=== PATIENT | female | born 1955 | race Caucasian/White ===

== ENCOUNTER 2017-04-05 07:13 | Emergency (ER) | payer BC ==
[2017-04-05 07:25] VITALS: BP 159/57
--- NOTE | 2017-04-05 07:45 | UC ---
Respiratory Complaint HPI - HPI Summary HPI Summary: "Sore throat, congestion, drainage from bilateral ears, & left eye redness & drainage since Thursday. " Denies ear pain, just feel plugged. + teeth hurt, + sinus pressure. Has had sinusitis but doesnt feel like it is at this point yet. + cough, no wheezing. no fevers. No eye trauma, no contacts. note - amox has caused yeast infection in past, no hives, itching or swelling. - History of Current Complaint Chief Complaint: UCRespiratory Stated Complaint: COUGH,CONGESTION Time Seen by Provider: 04/05/17 07:36 - Allergies/Home Medications Allergies/Adverse Reactions: Allergies Allergy/AdvReac Type Severity Reaction Status Date / Time Fish-derived Products Allergy Vomiting Verified 04/05/17 07:18 Meperidine [From Demerol HCl] Allergy Rash Verified 04/05/17 07:18 Home Medications: Home Medications Exenatide [Byetta] 10 mcg SC BID 04/05/17 [History Confirmed 04/05/17] Sitagliptin-Metformin HCl [Janumet 50-1000 mg] 1 tab PO BID 04/05/17 [History Confirmed 04/05/17] glipiZIDE TAB* [Glucotrol TAB*] 5 mg PO DAILY 04/05/17 [History Confirmed ] PMH/Surg Hx/FS Hx/Imm Hx Previously Healthy: Yes Endocrine History: Diabetes Cardiovascular History: Hypertension - Surgical History Surgical History: Yes Surgery Procedure, Year, and Place: CARPAL TUNNEL SURGERY RIGHT HAND, CHOLECYSTECTOMY, BUNION SURGERY - Family History Known Family History: Positive: Hypertension - Social History Alcohol Use: None Substance Use Type: None Smoking Status (MU): Never Smoked Tobacco Review of Systems Constitutional: Negative Skin: Negative Eyes: Drainage - crusted shut this AM. no pain, no trauma., Eye Redness ENT: Dental Pain, Ear Ache - pressure/dc, Sinus Congestion, Sinus Pain/ Tenderness Respiratory: Negative Cardiovascular: Negative Gastrointestinal: Negative Genitourinary: Negative Motor: Negative Neurovascular: Negative Musculoskeletal: Negative Neurological: Negative Psychological: Negative All Other Systems Reviewed And Are Negative: Yes Physical Exam Triage Information Reviewed: Yes Appearance: Well-Appearing, No Pain Distress, Well-Nourished - very pleasant Vital Signs: Initial Vital Signs Temp 98.0 F 04/05/17 07:21 Pulse 100 04/05/17 07:21 Resp 16 04/05/17 07:21 BP 159/57 04/05/17 07:21 Pulse Ox 98 04/05/17 07:21 Vital Signs Reviewed: Yes Eyes: Positive: Discharge - left goopy d/c with conj injection. right clear. ENT: Positive: Pharyngeal erythema - mild with + PND, Nasal congestion, TM bulging - b/l with mild blood tinge. TMs are distorted b/l with possbile perf., TM red, Other: - + sinus tenderness maxillary. Negative: Tonsillar exudate Neck exam: Normal Neck: Positive: Supple, Nontender, No Lymphadenopathy Respiratory Exam: Normal Respiratory: Positive: Lungs clear, Normal breath sounds, No respiratory distress, No accessory muscle use. Negative: Crackles, Rhonchi, Stridor, Wheezing Cardiovascular Exam: Normal Cardiovascular: Positive: RRR, No Murmur, Pulses Normal Abdomen Description: Positive: Nontender, Soft Bowel Sounds: Positive: Present Musculoskeletal Exam: Normal Neurological Exam: Normal Psychological Exam: Normal Skin Exam: Normal UC Diagnostic Evaluation - Laboratory O2 Sat by Pulse Oximetry: 98 Respiratory Course/Dx - Course Course Of Treatment: Left conjunctivitis. cool compresses, no eye make up. Presumed b/l TM perf b/c blood and d/c from canal, but TMs distorted b/l. Early sinusitis. -amox and gentamycin eye gtts. call PCP with yeast infection sx if they develop. She is very agreeable with this plan. - Differential Dx/Diagnosis Differential Diagnosis/HQI/PQRI: Bronchitis, Lower Resp Infection, Sinusitis Provider Diagnoses: Left conjunctivitis, B/L OM with perforated TMs presumed Discharge - Discharge Plan Condition: Stable Disposition: HOME Prescriptions: Amoxicillin (*) [Amoxicillin 875 MG (*)] 875 mg PO BID #20 tab Gentamicin 0.3% OPHTH.SOLN* 1 drop LEFT EYE Q4H #1 btl Patient Education Materials: Otitis Media (ED), Ruptured Eardrum (ED), Conjunctivitis (ED) Referrals: Neeta Arciniega MD [Primary Care Provider] - 2 Days Additional Instructions: -take a probiotic daily while on an antibiotic (align, colon health or florastor are some common brands) -Keep a close eye on your blood sugars as any infection can cause unusually high blood sugar readings.
== END 2017-04-05 07:56 | disposition home or self-care (01) ==
LOC: UCCORT 07:13
DX: H10.9 Unspecified conjunctivitis (principal); I10 Essential (primary) hypertension; H66.93 Otitis media, unspecified, bilateral
CPT/HCPCS: 99212; G0463

== ENCOUNTER 2017-07-21 07:52 | Inpatient (IN) | payer BC ==
[~2017-07-21 07:52] MED LIST: Buffered Lidocaine 0.9% SYRIN* 5 ML/SYR SYRINGE INTRADERM ONE; DiMENhydriNATE IV* 50 MG/ML VIAL IV PUSH PRN; Famotidine IV* 10 MG/ML 2 ML (20 mg) IV ONE; Morphine INJ* 2 MG/ML 1 ML CARPUJECT IV PRN; Ondansetron INJ* 2 MG/ML VIAL IV PRN; PROCHLORPERAZINE INJ 5 MG/ML 2 ML VIAL IV PRN; Scopolamine 1.5 mg* PATCH TRANSDERM ONE
[2017-07-21] MEDS ORDERED: ceFAZolin 2 GM PREMIX (*) 2 GM/50 ML BAG IVPB ONE (08:03)
[2017-07-21] MEDS ORDERED: Heparin VIAL(*) 5000 UNITS/ML VIAL (FIVE THOUSAND) ONE (08:03)
[2017-07-21] MEDS ORDERED: Clindamycin 900 MG IVPREMIX(* 900 MG/50 ML SDV IV ONE (08:03)
[2017-07-21] MEDS ORDERED: Famotidine IV* 10 MG/ML 2 ML (20 mg) ONE (08:03)
[2017-07-21] MEDS ORDERED: CeFAZolin 1 GM PREMIX(*) 1 GM BAG (REFRIGERATE) IVPB ONE (08:04)
[2017-07-21] MEDS ORDERED: Buffered Lidocaine 0.9% SYRIN* 5 ML/SYR SYRINGE ONE (08:04)
[2017-07-21] MEDS ORDERED: fentaNYL* 50 MCG/ML 2 ML VIAL (100 MCG VIAL) ONE ×2 (08:32→12:18)
[2017-07-21] MEDS ORDERED: Midazolam* 1 MG/ML 5 ML VIAL (5 MG) ONE (08:33)
[2017-07-21] MEDS ORDERED: KETAMINE HCL* 50 MG/ML 10 ML VIAL ONE (08:33)
[2017-07-21] MEDS ORDERED: Atracurium* 10 MG/ML 10 ML VIAL ONE (08:33)
[2017-07-21] MEDS ORDERED: Scopolamine 1.5 mg* PATCH ONE (08:34)
[2017-07-21] MEDS ORDERED: Insulin REGULAR(*) 1 UNITS UNIT ONE ×2 (08:47→11:59)
[2017-07-21] MEDS ORDERED: Methylene Blue 0.5 %* 50 MG/10 ML AMP IV ONE (09:27)
[2017-07-21] MEDS ORDERED: Bupivacaine 0.25% SDV* 30 ML ONE (09:27)
[2017-07-21] MEDS ORDERED: PROCHLORPERAZINE INJ 5 MG/ML 2 ML VIAL ONE (10:07)
[2017-07-21] MEDS ORDERED: Ondansetron INJ* 2 MG/ML VIAL ONE (10:07)
[2017-07-21] MEDS ORDERED: Propofol* 10 MG/ML 20 ML BTL IV PUSH ONE (10:07)
[2017-07-21] MEDS ORDERED: Glycopyrrolate IV* 0.2 MG/ML 1 ML VIAL ONE (10:07)
[2017-07-21] MEDS ORDERED: Phenylephrine INJ* 10 MG/ML 1 ML VIAL (10 MG) ONE (10:07)
[2017-07-21] MEDS ORDERED: Neostigmine Methylsulfate* 2 MG/2 ML SYRINGE ONE (10:07)
[2017-07-21] MEDS ORDERED: Lidocaine 2% PF* 10 ML AMP ONE (10:07)
[2017-07-21] MEDS ORDERED: Morphine INJ* 10 MG/ML 1 ML CARPUJECT ONE ×2 (10:23→12:18)
[2017-07-21] MEDS ORDERED: EPHEDrine (Pressors)* 50 MG/ML VIAL ONE (10:29)
[2017-07-21] MEDS ORDERED: Labetalol IV* 5 MG/ML 20 ML VIAL ONE (11:40)
[2017-07-21] MEDS ORDERED: Acetaminophen ADULT LIQ* 650 MG/20.3 ML UDC PO PRN (11:48)
[2017-07-21] MEDS ORDERED: Dextrose 50% Syringe 50 ML* 25 GM/50 ML SYRINGE IV PUSH PRN (11:51)
--- NOTE | 2017-07-21 12:08 | PN ---
Progress Note - Progress Note Date of Service: 07/21/17 Note: Brief Operative Note: Pre-op: Morbid obesity Post-op: Same Procedure: Laparoscopic Yu-en-Y gastric bypass Surgeon: Dr. Roberts Television News Video Editor: Chauncey Yee Mellissa: ECTOR EBL: Minimal Catheter: Naik to gravity Drains: None Fluids: LR 1500 cc Specimen: None Findings: See dictated op note
[2017-07-21] MEDS: fentaNYL* 50 MCG/ML 2 ML VIAL (100 MCG VIAL) IV PRN ×2 (12:19→12:46)
[2017-07-21] MEDS ORDERED: HYDROmorphone INJ* 2 MG/ML CARPUJECT SYRINGE ONE (13:51)
[2017-07-21] MEDS: Insulin LISPRO* 1 UNITS UNIT SUBCUT SCH ×2 (14:22→18:44)
[2017-07-21] MEDS: Pantoprazole IV* 40 MG IV SCH (15:02)
[2017-07-21] MEDS: Ketorolac INJ* 30 MG/ML 1 ML VIAL IV PUSH PRN (16:08)
[2017-07-21] MEDS: HYDROmorphone INJ* 2 MG/ML CARPUJECT SYRINGE IV PRN ×2 (18:47→22:35)
[2017-07-22] MEDS: Insulin LISPRO* 1 UNITS UNIT SUBCUT SCH ×4 (00:19→18:30)
[2017-07-22] MEDS: Ketorolac INJ* 30 MG/ML 1 ML VIAL IV PUSH PRN ×2 (00:23→06:25)
--- NOTE | 2017-07-22 06:45 | OP ---
CC: Neeta Arciniega MD; [facility]* DATE OF OPERATION: 07/21/17 - Inpatient, room SSU 352-01 DATE OF : 53 SURGEON: Jeoavny Roberts MD. SITE INSPECTOR: DILSHAD Ingram. ANESTHESIOLOGIST: Dr. Yuan. ANESTHESIA: General endotracheal. PRE-OP DIAGNOSIS: Class 2 obesity with diabetes. POST-OP DIAGNOSIS: Class 2 obesity with diabetes. OPERATIVE PROCEDURE: Laparoscopic Yu-en-Y gastric bypass. ESTIMATED BLOOD LOSS: Less than 20 mL. IV FLUIDS: 1.5 L Crystalloid. SPECIMENS: None. DRAINS: None. COMPLICATIONS: None. COUNTS: The instrument, needle, and sponge counts were correct. DESCRIPTION OF PROCEDURE: The patient was brought to the operating room and placed on the table supine. Sequential compression devices were placed in both lower extremities. General anesthesia was administered. Naik catheter was placed. She was positioned and padded appropriately. She was prepped and draped in usual sterile fashion and received appropriate intravenous antibiotics. Time-out was performed. Local anesthetic was infiltrated into the skin and soft tissue prior to making incision. Pneumoperitoneum was achieved using a Veress needle through a transumbilical placement. Subsequently a 12 mm optical trocar was placed in the left upper quadrant and additional 12 mm optical trocars are placed in the supraumbilical midline and right upper quadrant. 5 mm trocars were placed in the right upper quadrant medially and left upper quadrant laterally. A Michelle liver retractor was placed percutaneously in the subxiphoid position and used to elevate the left lobe of the liver. There were some adhesions of omentum in the left abdomen that were taken down with LigaSure. The gastric anatomy appeared normal. The gastric pouch was fashioned first by dissecting the cardia of the stomach away from the left jenny of the diaphragm. Then the perigastric dissection was undertaken on the lesser curvature, down to the lesser sac at approximately the second crossing vein. With several firings of the Endo DYLAN stapler with maciel cartridges, the gastric pouch was created approximately a 15 to 30 mL volume gastric pouch. The omentum and transverse colon were then retracted superiorly and the ligament of Treitz was identified. Jejunum was measured out 40 cm and the limb of jejunum was then secured to the left lateral aspect of the gastric pouch with interrupted 2-0 silks. Next, the gastrojejunal anastomosis was created using Endo DYLAN stapler with a 30 mm maciel cartridge. The common enterotomy was run closed over a 36-Jamaican gastric lavage tube with 3-0 PDS suture. Lastly, the [place] loop of jejunum was divided to the left of the anastomosis with the Endo DYLAN stapler with maciel cartridge. The anastomosis was then tested with methylene blue dye and instilled through the oral gastric tube and no leak was identified. The Yu limb was then measured out for a 75 cm and at this point, a functional end-to-side jejunojejunostomy was created using Endo DYLAN stapler with 60 mm maciel cartridges. The common enterotomy was run closed with 3-0 PDS. Anti-obstruction sutures were placed proximally and distally at the anastomosis and the mesenteric defect was run closed with 3-0 silk. The inspection revealed anastomosis to be intact and hemostasis was excellent. The orientation of the bowel was confirmed. The liver retractor and the ports were removed under direct visualization. The carbon dioxide was released. The skin incisions were closed with jaida and dressings were applied. The patient tolerated the procedure well, was extubated and transferred to recovery room in stable condition. [id number]/[facility] #: [id number] [facility] C[facility]ERStefani
[2017-07-22] MEDS ORDERED: ESCITALOPRAM 20 MG PO SCH (09:00)
[2017-07-22] MEDS: HYDROmorphone INJ* 2 MG/ML CARPUJECT SYRINGE IV PRN (10:00)
--- NOTE | 2017-07-22 10:46 | PN ---
Progress Note - Progress Note Date of Service: 07/22/17 SOAP: Subjective: Doing well. No c/o N/V. Pain controlled. Objective: Vital Signs Temp 98.8 F 07/22/17 07:48 Pulse 71 07/22/17 07:48 Resp 16 07/22/17 10:00 BP 137/57 07/22/17 07:48 Pulse Ox 93 07/22/17 07:50 Gen: NAD Abd: incisions c/d/i; minimally tender; soft. Intake & Output 07/21/17 07/22/17 07/22/17 18:59 06:59 18:59 Intake Total 1999 1937 Output Total 250 750 200 Balance 1750 1188 -200 Weight 172 lb 9.6 oz Intake: IV Fluids 1999 1937 CLINDAMYCIN 900MG 50 LR 1899 1937 NS 50ML, Cefazolin 2G 50 Oral 0 Output: Naik 250 750 200 Assessment: POD#1 s/p LRYGB. Doing well. Plan: Clears. PO meds. Ambulate/pulm toilet. Home likely tomorrow.
[2017-07-22] MEDS ORDERED: D5W 1/2 NS KCl 20 Meq 1000 ML* 1,000 ML IV SCH (11:50)
[2017-07-22] MEDS: Pantoprazole IV* 40 MG IV SCH (12:51)
[2017-07-22] MEDS: Escitalopram (NF) 10 MG TAB PO SCH (12:51)
[2017-07-22] MEDS: HYDROcodone/ACET. 7.5/325 LIQ* 15 ML UDC PO PRN ×2 (15:33→21:35)
[2017-07-23] MEDS: Insulin LISPRO* 1 UNITS UNIT SUBCUT SCH ×3 (00:09→11:34)
[2017-07-23] MEDS: HYDROcodone/ACET. 7.5/325 LIQ* 15 ML UDC PO PRN ×2 (04:02→11:15)
[2017-07-23] MEDS: Escitalopram (NF) 10 MG TAB PO SCH (09:04)
[2017-07-23] MEDS: Pantoprazole IV* 40 MG IV SCH (11:26)
[2017-07-23 11:41] VITALS: BP 148/61
--- NOTE | 2017-07-24 02:09 | DS ---
CC: Dr. Neeta Arciniega in [place]* DISCHARGE SUMMARY: DATE OF ADMISSION: 07/21/17 DATE OF DISCHARGE: 07/23/17 ATTENDING SURGEON: Dr. Jeovany Roberts* (dictated by DILSHAD Felton). HOSPITAL COURSE: Please refer to admission history and physical for admission details. The patient was taken to the operating room on 07/21/17 at which time she underwent laparoscopic Yu-en-Y gastric bypass with Dr. Roberts. Postoperatively, she has done well with no problems reported. She has had gradual improvement in pain. She is tolerating bariatric clear liquids well as of the morning of discharge. PHYSICAL EXAMINATION: Temperature 98.6, blood pressure 148/61, pulse 64, respirations 20, room air saturation 99%. General: She appears well and in no acute distress. Skin: Warm and dry. Heart: Regular rate and rhythm. Lungs: Clear to auscultation. Abdomen: Bowel sounds present. Laparoscopic incision sites clean with intact jaida. No evidence of wound infection. Abdomen is soft with limited incisional tenderness as would be expected. IMPRESSION: Status post laparoscopic Yu-en-Y gastric bypass, doing well. PLAN: Home today. Instructions were reviewed regarding diet, wound care, and activity. She already has an existing followup appointment with the [facility] for metabolic and bariatric surgery. In terms of discharge medications, she will continue to hold all of her diabetes medications (fingerstick blood sugars have ranged between 128 and 150). She will continue to hold her lisinopril, but may take her usual atorvastatin and escitalopram. She also will continue with supplements as directed. DILSHAD FELTON [id number]/[facility] #: [id number] MTDD
[2017-07-24] MEDS ORDERED: Scopolomine PATCH Remove* 1 NOTE MISC PATCH OFF ONE (06:00)
== END 2017-07-23 13:10 | disposition home or self-care (01) | DRG 403 ==
LOC: AA 07:52 → SSU 13:36
PROVIDERS: ADMIT Surgery; ATTEND Surgery
PROC: 0D164ZA Bypass Stomach to Jejunum, Percutaneous Endoscopic Approach (ICD-10-PCS; principal; 2017-07-21 09:30)
DX: E66.01 Morbid (severe) obesity due to excess calories (principal); E11.9 Type 2 diabetes mellitus without complications; I10 Essential (primary) hypertension; K21.9 Gastro-esophageal reflux disease without esophagitis; F32.9 Major depressive disorder, single episode, unspecified; F41.9 Anxiety disorder, unspecified; H40.9 Unspecified glaucoma; Z90.49 Acquired absence of other specified parts of digestive tract; Z82.49 Family history of ischemic heart disease and other diseases of the circulatory system; Z82.3 Family history of stroke; Z85.828 Personal history of other malignant neoplasm of skin; Z68.31 Body mass index [BMI] 31.0-31.9, adult; Z88.8 Allergy status to other drugs, medicaments and biological substances; Z91.013 Allergy to seafood; Z87.891 Personal history of nicotine dependence
CPT/HCPCS: 43644; A9270-GY; C1776; J0690; J0780; J1170; J1644; J1885; J2001; J2250; J2270; J2405; J2704; J3010

== ENCOUNTER 2017-09-09 10:31 | Day surgery (SDC) | payer BC ==
[~2017-09-09 10:31] MED LIST changes: -DiMENhydriNATE IV* 50 MG/ML VIAL IV PUSH PRN; -Famotidine IV* 10 MG/ML 2 ML (20 mg) IV ONE; -Morphine INJ* 2 MG/ML 1 ML CARPUJECT IV PRN; -Ondansetron INJ* 2 MG/ML VIAL IV PRN; -PROCHLORPERAZINE INJ 5 MG/ML 2 ML VIAL IV PRN; -Scopolamine 1.5 mg* PATCH TRANSDERM ONE
[2017-09-09] MEDS ORDERED: Buffered Lidocaine 0.9% SYRIN* 5 ML/SYR SYRINGE ONE (10:40)
[2017-09-09] MEDS ORDERED: Clindamycin 900 MG IVPREMIX(* 900 MG/50 ML SDV IV ONE (10:40)
[2017-09-09] MEDS ORDERED: ceFAZolin 2 GM PREMIX (*) 2 GM/50 ML BAG IVPB ONE (10:40)
[2017-09-09] MEDS ORDERED: Heparin VIAL(*) 5000 UNITS/ML VIAL (FIVE THOUSAND) ONE (10:40)
[2017-09-09] MEDS ORDERED: ceFAZolin 1 GM in Dextrose (*) 1 GM/50 ML BAG IVPB ONE (10:40)
[2017-09-09] MEDS ORDERED: Bupivacaine 0.25% SDV* 30 ML ONE (13:54)
[2017-09-09] MEDS ORDERED: Lidocaine 2% PF * 5 ML VIAL ONE (14:07)
[2017-09-09] MEDS ORDERED: fentaNYL* 50 MCG/ML 2 ML VIAL (100 MCG VIAL) ONE (14:07)
[2017-09-09] MEDS ORDERED: Atracurium* 10 MG/ML 10 ML VIAL ONE (14:08)
[2017-09-09] MEDS ORDERED: Propofol* 10 MG/ML 20 ML BTL IV PUSH ONE (14:08)
[2017-09-09] MEDS ORDERED: EPHEDrine (Pressors)* 50 MG/ML VIAL ONE (14:43)
[2017-09-09] MEDS ORDERED: Edrophonium Chloride* 10 MG/ML 15 ML VIAL ONE (15:01)
[2017-09-09] MEDS ORDERED: Atropine 1MG/ML INJ* 1 ML VIAL ONE (15:01)
--- NOTE | 2017-09-09 15:15 | PN ---
Progress Note - Progress Note Date of Service: 09/09/17 Note: Brief Operative Note: Preop Dx: abdominal pain Postop Dx: same; adhesions Procedure: diagnostic laparoscopy; lysis of adhesions Anesthesia: GET Surgeon: Alejandra Asst: DILSHAD Bey Fluids: 850 ml EBL: 10 ml Specimen: none Drains: none Findings: dictated
[2017-09-09] MEDS ORDERED: HYDROcodone/ACETAMIN 5-325 MG* 1 TAB PO PRN (15:24)
[2017-09-09] MEDS ORDERED: Acetaminophen TAB* 325 MG PO PRN (15:24)
[2017-09-09] MEDS ORDERED: Ketorolac INJ* 30 MG/ML 1 ML VIAL IV PRN (15:26)
[2017-09-09] MEDS ORDERED: fentaNYL* 50 MCG/ML 2 ML VIAL (100 MCG VIAL) IV PRN (15:26)
[2017-09-09] MEDS ORDERED: oxyCODONE/Acetamin 5/325 MG* TAB PO PRN (15:26)
[2017-09-09] MEDS ORDERED: DiMENhydriNATE IV* 50 MG/ML VIAL IV PUSH PRN (15:26)
[2017-09-09 16:23] VITALS: BP 132/68
--- NOTE | 2017-09-10 05:19 | OP ---
CC: Neeta Arciniega MD, [facility] * DATE OF OPERATION: 09/09/17 - [facility] DATE OF : 53 SURGEON: Jeovany Roberts MD STATION INSTALLATION SUPERVISOR: DILSHAD Felton ANESTHESIOLOGIST: Satya Goss MD ANESTHESIA: General endotracheal. PRE-OP DIAGNOSIS: Left lower quadrant abdominal pain status post laparoscopic Yu- en-Y gastric bypass. POST-OP DIAGNOSES: Left lower quadrant abdominal pain status post laparoscopic Yu-en-Y gastric bypass and intraperitoneal adhesions. OPERATIVE PROCEDURE: Diagnostic laparoscopy and lysis of adhesions. ESTIMATED BLOOD LOSS: Minimal. IV FLUIDS: Crystalloid. SPECIMEN: None. DRAINS: None. COMPLICATIONS: None. COUNTS: Instrument, needle, and sponge counts were correct. OPERATIVE FINDINGS: Intraperitoneal adhesions of omentum to left-sided anterior abdominal wall. DESCRIPTION OF PROCEDURE: The patient was brought to the operating room and placed on the table supine. Sequential compression devices were placed on both lower extremities and general anesthesia was administered. The patient was positioned and padded appropriately. She was prepped and draped in usual sterile fashion and time-out was performed. Local anesthetic was infiltrated into the skin and soft tissue prior to making each incision. The Veress needle was used to establish pneumoperitoneum via transumbilical placement. After insufflating carbon dioxide to a pressure of 15 mmHg, a 5-mm optical trocar was placed in the supraumbilical midline through previous scar. Two additional 5 mm trocars were placed, under direct visualization, in the right upper quadrant. Inspection of the peritoneal cavity revealed no obvious adhesions except for an area of omentum that was adherent to the left side of the anterior abdominal wall. The liver appeared to be normal. The gastrojejunal anastomosis was inspected and noted to be intact and normal in appearance. The Yu limb is followed distally and this did not demonstrate any evidence of inflammation or abnormal distention and the mesenteric defect closure appeared to be intact. The jejunojejunostomy appeared to be normal and widely patent. The jejunum was followed distally to the ileocecal region and also from the jejunojejunostomy proximally in the direction of the ligament of Treitz. Again, all the bowel appeared normal. The area of omentum that was adherent in the left side of the abdomen was taken down sharply and the inspection then proceeded along the descending colon to sigmoid colon, which appeared to be well adhered to the lateral side wall, but no evidence of inflammation. The sigmoid colon and rectum appeared normal. The uterus appeared to be small and she had bilateral tubes and ovaries that appeared to be intact and normal appearance. There was no free fluid noted. At this point, the operation was concluded. The ports removed under direct visualization and the carbon dioxide was released. The skin incisions were closed with 4-0 Monocryl in subcuticular fashion. Steri-Strips applied. The patient tolerated the procedure well, was extubated and transferred to the recovery room in stable condition. [id number]/[facility] #: [id number] MTDD
== END 2017-09-09 16:25 | disposition home or self-care (01) ==
LOC: OR 10:31
PROVIDERS: ATTEND Surgery
DX: R10.30 Lower abdominal pain, unspecified (principal); K66.0 Peritoneal adhesions (postprocedural) (postinfection); Z98.84 Bariatric surgery status; Z98.0 Intestinal bypass and anastomosis status; Z68.30 Body mass index [BMI] 30.0-30.9, adult; E11.9 Type 2 diabetes mellitus without complications; K21.9 Gastro-esophageal reflux disease without esophagitis; I10 Essential (primary) hypertension; Z87.891 Personal history of nicotine dependence
CPT/HCPCS: J0461; J0690; J1644; J2704; J3010